=== PATIENT | male | born 1995 | race Caucasian/White ===

== ENCOUNTER 2018-07-21 12:57 | Emergency (ER) | payer OTHER, SELFPAY ==
[2018-07-21 12:58] VITALS: BP 138/77; PULSE 79; RESP 16; TEMP 36.6; O2SAT 99; BMI 36.3
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
[2018-07-21 15:49] VITALS: RESP 18
== END 2018-07-21 15:49 | disposition home or self-care (01) ==
PROVIDERS: Emergency Provider Emergency Medicine
DX: S39.012A Strain of muscle, fascia and tendon of lower back, initial encounter (principal); V43.52XA Car driver injured in collision with other type car in traffic accident, initial encounter; Y93.89 Activity, other specified
CPT/HCPCS: 72100; 99282